=== PATIENT | male | born 1975 | race Asian ===

== ENCOUNTER 2017-05-26 17:07 | Emergency (ER) | payer OTHER ==
[~2017-05-26] VITALS: Ht 172.7 cm; Wt 68.0 kg
--- NOTE | 2017-05-26 17:19 | NUR ---
PATIENT ARRIVED TO ER BY SELF C/O LEFT UPPER EXTREMITY PAIN. PATIENT IS A/OX 4, BREATHING EVEN AND UNLABORED ON ROOM AIR. NO SOB. VITALS STABLE. SAFETY AND COMFORT MEASURES IN PLACE, AWAITING MD ORDERS.
[2017-05-26] MEDS ORDERED: ACETAMINOPHEN W/ CODEINE#3 1 EA TABLET ONE (17:25)
[2017-05-26] MEDS ORDERED: ACETAMINOPHEN W/ CODEINE#3 1 EA TABLET PO ONE (17:30)
--- NOTE | 2017-05-26 18:19 | NUR ---
Patient discharged to home in stable condition. Written and verbal after care instructions given. Patient verbalizes understanding of instruction.
== END 2017-05-26 18:23 | disposition home or self-care (01) ==
LOC: ER 17:20
DX: S50.02XA Contusion of left elbow, initial encounter (principal); Y08.89XA Assault by other specified means, initial encounter; Y93.89 Activity, other specified; Y92.89 Other specified places as the place of occurrence of the external cause; Y99.9 Unspecified external cause status
CPT/HCPCS: 73080; 99284; A4606; Z7610